=== PATIENT | male | born 2000 | race Two or more races ===

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

== ENCOUNTER 2020-07-26 15:50 | Emergency (ER) | payer MEDICAID ==
[2020-07-26 15:55] VITALS: BP 121/57
== END 2020-07-26 17:25 | disposition left against medical advice (07) ==
LOC: ED 16:00
DX: R21 Rash and other nonspecific skin eruption (principal)
CPT/HCPCS: 99281